=== PATIENT | male | born 1990 | race Caucasian/White ===

== ENCOUNTER 2017-10-15 14:58 | Emergency (ER) | payer OTHER ==
[~2017-10-15] VITALS: Ht 170.2 cm; Wt 86.1 kg
[2017-10-15 15:52] LABS: HEMATOCRIT 44.2 % (38.0-50.0); HEMOGLOBIN 16.5 G/DL (12.5-16.6); MCH 31.5 PG (29.0-34.0); MCHC 37.3 G/DL (30.0-36.0); MCV 84.4 FL (86-99); PLATELET COUNT 224 K/uL (156-360); RBC DIS.WIDTH-CV 11.9 % (11.8-14.6); RBC DIS.WIDTH-SD 35.7 % (39-53); RED BLOOD COUNT 5.24 M/uL (4.00-5.50); WHITE BLOOD COUNT 10.1 K/uL (4.1-10.2)
[2017-10-15 16:03] LABS: CHLORIDE 103 mEq/L (99-109); POTASSIUM 3.8 mEq/L (3.7-5.4); SODIUM 141 mEq/L (136-147)
[2017-10-15 16:05] LABS: GLUCOSE 96 mg/dL (70-99)
[2017-10-15 16:09] LABS: CREATININE 1.1 mg/dL (0.6-1.3); GFR ESTIMATE (CALCULATED) > 59 mL/min/ (58.99-99999)
[2017-10-15 16:10] LABS: UREA NITROGEN (BUN) 13 mg/dL (9-23)
[2017-10-15 16:17] LABS: TROP-I INTERPRETATION NEGATIVE; TROPONIN-I < 0.01 ng/mL (0.0-0.30)
[2017-10-15 17:04] VITALS: BP 118/76
== END 2017-10-15 17:07 | disposition home or self-care (01) ==
LOC: EME 14:58
PROVIDERS: Emergency Medicine
DX: T67.5XXA Heat exhaustion, unspecified, initial encounter (principal); R07.9 Chest pain, unspecified; F32.9 Major depressive disorder, single episode, unspecified; F41.9 Anxiety disorder, unspecified; Z88.5 Allergy status to narcotic agent
CPT/HCPCS: 80048; 84484; 85027; 93005; 99281; 99285; J7030